=== PATIENT | male | born 1985 | race Caucasian/White ===

== ENCOUNTER 2021-04-25 14:41 | Emergency (ER) | payer OTHER ==
[~2021-04-25] VITALS: Ht 175.3 cm; Wt 119.3 kg
[~2021-04-25 14:41] MED LIST: ACEBUTCAFT PO; AMOX500 PO; CEPH250A PO; CETI10 PO; CRUTCH2 USE; CRUTCH3 USE; DIPH50 PO; HYDACE5 PO; NAPR500 PO; OXYACE5T PO; PENVK500 PO; PRED5 PO; PROM25 PO; Percocet 5-3251 EACH PO; RXCLIN PO; SULTRIDS PO; TRAM50 PO
== END 2021-04-25 15:48 | disposition home or self-care (01) ==
LOC: ER 14:41
DX: S81.811A Laceration without foreign body, right lower leg, initial encounter (principal); F17.200 Nicotine dependence, unspecified, uncomplicated; Z23 Encounter for immunization; W45.8XXA Other foreign body or object entering through skin, initial encounter
CPT/HCPCS: 12002; 90471; 90714; 99282-25